=== PATIENT | male | born 1955 | race Hispanic/Latino ===

== ENCOUNTER 2016-08-10 13:38 | Emergency (ER) | payer SELFPAY ==
[2016-08-10 14:08] VITALS: BMI 29.3
[2016-08-10 14:20] VITALS: RESP 18; TEMP 98.7; O2SAT 96
--- NOTE | 2016-08-10 15:39 | ED PDOC ---
Arrival/HPI - General Historian: Patient - History of Present Illness Time/Duration: Other (yesterday ) Symptom Onset: Sudden Severity Level: Mild Activities at Onset: Significant Context: Slipped <Levy Sotomayor - Last Filed: 08/10/16 15:35> <Ela Diaz PA-C - Last Filed: 08/10/16 17:45> - General Chief Complaint: Lower Extremity Problem/Injury Time Seen by Provider: 08/10/16 14:30 - History of Present Illness Narrative History of Present Illness (Text): 08/10/16 15:36 Norm Cole is a 60 year old male who presents to the emergency department complaining of right lower leg pain since yesterday after slipping and falling on wet floor yesterday. Reports that pain is mainly between the right knee and ankle. Denies any head trauma or LOC. Denies fever, chills, back pain, neck pain , difficulty breathing, chest pain, urinary symptoms, numbness/weakness of extremity or any other complaints at this time. (Levy Sotomayor) Past Medical History - Provider Review Nursing Documentation Reviewed: Yes - Infectious Disease Hx of Infectious Diseases: None - Cardiac Hx Hypertension: Yes - Pulmonary Hx Respiratory Disorders: No Hx Pulmonary Embolism: Yes Other/Comment: L dvt - Neurological Hx Neurological Disorder: No - HEENT Hx HEENT Disorder: No - Renal Hx Renal Disorder: No - Endocrine/Metabolic Hx Diabetes Mellitus Type 2: Yes - Hematological/Oncological Hx Blood Transfusions: Yes Hx Blood Transfusion Reaction: No - Integumentary Hx Dermatological Disorder: No - Musculoskeletal/Rheumatological Hx Falls: No Hx Fractures: Yes (left 5th toe) - Gastrointestinal Hx Gastrointestinal Disorders: No - Genitourinary/Gynecological Hx Genitourinary Disorders: No - Psychiatric Hx Psychophysiologic Disorder: No Hx Substance Use: No - Anesthesia Hx Anesthesia Reactions: No Hx Malignant Hyperthermia: No <Levy Sotomayor - Last Filed: 08/10/16 15:35> Family/Social History - Physician Review Nursing Documentation Reviewed: Yes Family/Social History: No Known Family HX Smoking Status: Current Some Days Smoker Hx Alcohol Use: No (quit 1 mon) Hx Substance Use: No <Levy Sotomayor - Last Filed: 08/10/16 15:35> Allergies/Home Meds <Levy Sotomayor - Last Filed: 08/10/16 15:35> <Ela Diaz PA-C - Last Filed: 08/10/16 17:45> Allergies/Adverse Reactions: Allergies Penicillins Allergy (Verified 05/29/15 07:38) Home Medications: Home Meds Medication Instructions Recorded Confirmed Apixaban [Eliquis] 5 mg PO BID 08/10/16 08/10/16 Glipizide [Glipizide Xl] 5 mg PO BID 08/10/16 08/10/16 Review of Systems - Physician Review All systems were reviewed & negative as marked: Yes - Review of Systems Constitutional: Normal. absent: Fatigue, Fevers Respiratory: Normal. absent: SOB, Cough Cardiovascular: Normal. absent: Chest Pain Genitourinary Male: Normal. absent: Dysuria, Frequency Musculoskeletal: Other (right lower leg pain and swelling ) Neurological: Normal. absent: Headache, Dizziness Psychiatric: Normal <Levy Sotomayor - Last Filed: 08/10/16 15:35> Physical Exam Vital Signs Reviewed: Yes Temperature: Afebrile Blood Pressure: Normal Pulse: Tachycardic Respiratory Rate: Normal Appearance: Positive for: Well-Appearing, Non-Toxic, Comfortable Pain Distress: None Mental Status: Positive for: Alert and Oriented X 3 - Systems Exam Head: Present: Atraumatic, Normocephalic Pupils: Present: PERRL Conjunctiva: Present: Normal Respiratory/Chest: Present: Clear to Auscultation, Good Air Exchange. No: Respiratory Distress, Accessory Muscle Use Cardiovascular: Present: Regular Rate and Rhythm, Normal S1, S2. No: Murmurs Abdomen: Present: Normal Bowel Sounds. No: Tenderness, Distention, Peritoneal Signs Upper Extremity: Present: Normal Inspection. No: Cyanosis, Edema Lower Extremity: Present: NORMAL PULSES, Swelling, Neurovascularly Intact, Other (tenderness and swelling to distal aspect of right tib fib and entire right ankle. ). No: Deformity Neurological: Present: GCS=15, CN II-XII Intact, Speech Normal Skin: Present: Warm, Dry, Normal Color. No: Rashes Psychiatric: Present: Alert, Oriented x 3, Normal Insight, Normal Concentration <Levy Sotomayor - Last Filed: 08/10/16 15:35> Vital Signs Temp Pulse Resp BP Pulse Ox 08/10/16 16:34 89 18 145/71 96 08/10/16 15:11 98 H 18 148/79 96 08/10/16 13:38 98.7 F 106 H 18 158/86 H 96 Medical Decision Making <Levy Sotomayor - Last Filed: 08/10/16 15:35> <Ela Diaz PA-C - Last Filed: 08/10/16 17:45> ED Course and Treatment: 08/10/16 15:41 Impression: A 60 year old male who presents to the ed complaining of right lower leg pain s/p slip and fall on wet floor yesterday. On PE, there is tenderness and swelling to distal aspect of right tib/fib and entire right ankle. Plan: -- Ultram -- Right foot X-ray -- Right tib/fib X-ray -- Reassess and disposition Progress Notes: (Levy Sotomayor) 08/10/16 17:41 XR R foot: no fracture, no dislocation, as read by PA XR R tib-fib: (+) comminuted fracture of the distal fibula, no dislocation, as read by PA X-ray results discussed with the patient in great detail. Orthoglass posterior short splint applied by PA. Neurovascular intact post splint application. Patient instructed on crutch walking. Patient instructed absolutely no weightbearing on the affected leg. Based on history, exam and diagnostic results plan will be for outpatient follow -up with orthopedic referral provided. Prescription provided. Patient states he fully agrees with and understands discharge instructions. States that he agrees with the plan and disposition. Verbalized and repeated discharge instructions and plan. I have given the patient opportunity to ask any additional questions. Follow up with the orthopedic referral provided in 1-2 days without fail. Advised to take medication as prescribed. Return to the emergency room at any time for any new or worsening symptoms. (Ela Diaz PA-C) - RAD Interpretation Radiology Orders: 08/10/16 14:30 TIBIA FIBULA RIGHT [RAD] Stat 08/10/16 14:52 FOOT RIGHT 3 VIEWS ROUTINE [RAD] Stat - Medication Orders Current Medication Orders: Discontinued Medications Tramadol HCl (Ultram) 50 mg PO STAT STA Stop: 08/10/16 14:31 Last Admin: 08/10/16 14:52 Dose: 50 MG - Scribe Statement The provider has reviewed the documentation as recorded by the Scribe <Levy Sotomayor - Last Filed: 08/10/16 15:35> - PA / PLUG MAKER / Resident Statement / has reviewed & agrees with the documentation as recorded. <Ela Diaz PA-C - Last Filed: 08/10/16 17:45> - Scribe Statement Fang Terarowan All medical record entries made by the Scribe were at my direction and personally dictated by me. I have reviewed the chart and agree that the record accurately reflects my personal performance of the history, physical exam, medical decision making, and the department course for this patient. I have also personally directed, reviewed, and agree with the discharge instructions and disposition. (Levy Sotomayor) Disposition/Present on Arrival - Present on Arrival History of DVT/PE: Yes History of Uncontrolled Diabetes: Yes Urinary Catheter: No History of Decub. Ulcer: No History Surgical Site Infection Following: None <Levy Sotomayor - Last Filed: 08/10/16 15:35> - Present on Arrival Any Indicators Present on Arrival: No History of DVT/PE: No History of Uncontrolled Diabetes: No Urinary Catheter: No History of Decub. Ulcer: No - Disposition Have Diagnosis and Disposition been Completed?: Yes Disposition Time: 17:44 Patient Plan: Discharge <Ela Diaz PA-C - Last Filed: 08/10/16 17:45> - Disposition Diagnosis: Fibula fracture Disposition: HOME/ ROUTINE Patient Problems: Current Active Problems Problem Status Diagnosed Bacteremia Acute Benign hypertensive heart disease without congestive heart failure Acute Cellulitis of hand, right Acute DM w/o complication type II Acute DM2 (diabetes mellitus, type 2) Acute DVT (deep venous thrombosis) Acute Dehydration Acute Diabetic foot ulcer Acute Empyema Acute Fracture of fifth toe, left, closed Acute Pleural effusion, right Acute Pulmonary embolism Acute Pyelonephritis Acute Right wrist pain Acute Uncontrolled diabetes mellitus Acute Condition: STABLE Discharge Instructions (ExitCare): Leg Fracture (ED) Print Language: MALDIVIAN Additional Instructions: Thank you for letting us take care of you today. You were treated for a distal fibula fracture right leg. The emergency medical care you received today was directed at your acute symptoms. If you were prescribed any medication, please fill it and take as directed. It may take several days for your symptoms to resolve. Return to the Emergency Department if your symptoms worsen, do not improve, or if you have any other problems. Please contact orthopedic referral provided in 2 days for re-evaluation and follow up. Bring any paperwork you were given at discharge with you along with any medications you are taking to your follow up visit. Our treatment cannot replace ongoing medical care by a primary care provider (PCP) outside of the emergency department. Thank you for allowing the [facility] team to be part of your care today. Prescriptions: oxyCODONE/Acetaminophen [Percocet 5/325 mg Tab] 1 ea PO QID #16 tab Referrals: Alfredo iL III, MD [Medical Doctor] - Follow up with primary Forms: WORK NOTE
--- NOTE | 2016-08-10 16:27 | RAD ---
PROCEDURE: Right Foot Radiographs. HISTORY: pain COMPARISON: None. FINDINGS: BONES: Normal. No fracture. JOINTS: Normal. SOFT TISSUES: Normal. OTHER FINDINGS: None. IMPRESSION: Normal right foot radiographs.
[2016-08-10 18:23] VITALS: BP 142/68; PULSE 79
== END 2016-08-10 18:26 | disposition home or self-care (01) ==
LOC: ED 13:38
DX: S82.401A Unspecified fracture of shaft of right fibula, initial encounter for closed fracture (principal); W01.0XXA Fall on same level from slipping, tripping and stumbling without subsequent striking against object, initial encounter; I10 Essential (primary) hypertension; E11.9 Type 2 diabetes mellitus without complications; F17.210 Nicotine dependence, cigarettes, uncomplicated; Z88.0 Allergy status to penicillin